=== PATIENT | female | born 1965 ===

== ENCOUNTER 2017-11-07 14:00 | Outpatient (RCR) | payer OTHER, SELFPAY ==
--- NOTE | 2017-10-16 15:00 | PTTR_ITS ---
DATE: 10/16/17 SUBJECTIVE: Do feel I am doing better, but still have to limit what I do with left arm. 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 Has to see if she needs a doctor's note to try this. OBJECTIVE: Manual therapy: ([id number]). Mobilization of left cain-hum jt while in supine position. This included inferior and posterior glides, caudal and lateral distraction, as well as AAROM throughout all planes. Utilized hold relax technique with ER. Performed TFM to anterior cuff, PRT to posterior cuff and TPM to upper traps and rhomboids. Therapeutic procedures ([id number]). * x See flow sheet: Focus was on AAROM, scap stabilization and light rotator cuff strengthening. * x Provided skilled instruction in proper exercise performance * x Provided skilled manual cues to facilitate proper muscle recruitment and/ or movement pattern * x Ultrasound - (x 8 mins) - [id number]: Utilized phonophoresis at 3 mHz at 1.0 w/cm2 50% duty cycle x 8 minutes to anterior cuff region at start of session. Ended session with cryotherapy x 10 minutes to left shoulder while in the seated position. Direct treatment time: 40 minutes Total treatment time: 50 minutes
--- NOTE | 2017-10-18 14:15 | PTTR_ITS ---
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 Indicates she did take ibuprofen following her last session, was warned by her physician that she will most likely be sore following her PT sessions and utilize anti-inflammatories as he instructed. Ultrasound [id number]: Did receive phonophoresis at 3mhz, 50% duty cycle at 1.0 w/ cm2 to the L anterior cuff region x8 mins. Manual therapy: ([id number]). Mobilization of the L GH joint while in supine position. This did include inferior/posterior glides, caudal distraction and AAROM throughout all planes. Utilize hold/relax with IR/ER stretching. Performed transverse friction to the anterior cuff briefly with good desensitization achieved. The patient did transition into the prone position for positional release to the posterior cuff as well as brief trigger point work throughout the upper traps and periscapular region. Did utilize Watson shoulder procedure for adhesive capsulitis with patient in clinic today at no charge. Therapeutic procedures ([id number]). * x See flow sheet: focus was on scap stabilization, cuff strengthening as well as AAROM on ranger martin, finger ladder, in flexion and self stretching into flexion utilizing hand sliding up door casing. She did receive cryotherapy for 10 mins to L shoulder in seated position at no charge. Direct treatment time: 45 mins Total treatment time: 55 mins SG/dl
--- NOTE | 2017-10-23 14:00 | PTTR_ITS ---
DATE: 10/23/17 SUBJECTIVE: Was able to drive her car for 1 and 1/2 hours without increased irritation over the past few days. Rates her pain as a 2 out of 10 at its worse in the last couple of weeks. Overall feels she is doing a lot better and is hoping to get back to full duties at work soon. Sees Dr. Johnson in a couple weeks. Feels like she is moving her left arm easier and further now. OBJECTIVE: * x Ultrasound - (x 8 mins) - [id number]: Phonophoresis with dex gel to anterior rotator cuff x 8 minutes at 3 mHz at 1.0 w/cm2 50% duty cycle at start of session. Manual therapy: ([id number]). Mobilization of left cain-hum jt while in supine position consisting of inferior and posterior glides, caudal and lateral distraction, AA/ PROM throughout all planes. Utilized hold relax technique with IR/ ER. brief TFM to anterior cuff, prone position PRT to posterior cuff and TPM to upper traps and periscap regions. AAROM post mobilization was 160 degrees flexion, 165 degrees scaption, 85 degrees ER and 60 degrees IR. Therapeutic procedures ([id number]). * x See flow sheet: Focus on scap stabilization and AAROM with ball on the wall, pulleys and finger ladder with lift off. * x Provided skilled instruction in proper exercise performance * x Provided skilled manual cues to facilitate proper muscle recruitment and/ or movement pattern HEP review: Indicated she is doing her pulleys, cane stretches and wall slide stretches regularly. Ended session with cryotherapy x 10 minutes to left shoulder at no charge. Direct treatment time: 50 minutes Total treatment time: 60 minutes
--- NOTE | 2017-10-25 15:46 | PTTR_ITS ---
DATE: 10/25/17 SUBJECTIVE: Sherri states that most of her sensitivity, at this point, is posterior. She is mildly sensitive to palpation of the anterior cuff, now, but feels this is much improved. Overall, feels that her ROM has greatly increased. OBJECTIVE: Manual therapy: ([id number]). Mobs of the left glenohumeral joint while in supine. This did include inferior and posterior glides, caudal and lateral distraction as well as AA/AROM throughout all planes. Rhythmic stabilization at various areas of flexion was performed against moderate resistance while in the supine position. Did receive TFM to the anterior cuff briefly, as well as positional release to the posterior cuff. TP work was performed to the upper traps and rhomboids while in prone. Therapeutic procedures ([id number]). * x See flow sheet: focus was on AAROM activities, scapular stabilization and light cuff strengthening. Verbal and tactile cues were provided throughout today's session for proper positioning and isolation of specific muscles. x Ultrasound ([id number] x1). Did receive ultrasound to the posterior cuff today due to this being her most sensitive region upon palpation. This was done @3 megahertz 50% duty cycle @1.0 watt per cm sq x8 minutes. Ended with cryotherapy to the left shoulder while seated at no charge. Direct treatment time: 50 minutes Total treatment time: 60 minutes LOBO/anamaria
--- NOTE | 2017-10-29 15:00 | PTTR_ITS ---
DATE: 10/29/17 SUBJECTIVE: Able to drive 2+ hours without increased irritation. Pain level is a 2 out of 10 at the worst over the last week. Generally a little more sore for remaining day after PT, but tolerable. Doing well with current 4 hours work schedule. OBJECTIVE: Manual therapy: ([id number]). Mobilization of left cain-humeral jt while in supine consisting of inferior / posterior glides, caudal and lateral distraction, f/b AA/PROM throughout all planes. Continues to be limited to approximately 160 degrees flexion / abduction with end range sensitivity. Performed 10 reps of active assistive PNF D1D2 exercises within a pain free range. Rhythmic stabilization at 90 degrees against mod resistance while in supine. Therapeutic procedures ([id number]). * x See flow sheet: Focus on AAROM of left cain-hum jt, scap stab and rotator cuff strengthening. Performed 15 minutes of wellness with assistive personnel at no charge. * x Provided skilled instruction in proper exercise performance * x Provided skilled manual cues to facilitate proper muscle recruitment and/ or movement pattern * x Ultrasound - (x 8 mins) - [id number]: Phonophoresis with dex gel at 3 mHz at 1.0 w/cm2 50% duty cycle x 8 minutes to posterior cuff region, which is where patient complains of being most sensitive to palpation. Ended session with cryotherapy x 10 minutes at no charge. Direct treatment time: 45 minutes Total treatment time: 70 minutes
--- NOTE | 2017-11-01 13:30 | PTTR_ITS ---
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 Johnson on 11/12/17. 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 Johnson. Manual therapy: ([id number]). L GH joint, lateral distraction, caudal glides, posterior/inferior mobilization followed by AAROM into flexion, scapular plane abduction in supine and prone. Therapeutic procedures ([id number]). For prone Hughston's requiring tactile and verbal cues for proper scapular positioning and avoid compensatory trunk extension. Also performed PRT's to the posterior cuff. She then continued via wellness for addition of 25 mins. Actively patient's ROM in flexion 140 degrees, IR L5, AA to T10. ER C7, AA in supine with arm abducted in front plane achieving 75-80 degrees. Direct treatment time: 30 mins Total treatment time: 55 mins P: Continue with current POC. See how she held up with progression of her strengthening in clinic next visit. MM/dl
--- NOTE | 2017-11-05 15:15 | PTTR_ITS ---
DATE: 11/05/17 SUBJECTIVE: Sherri indicates she has been doing well at work thus far. Does not note any increased irritation with her increased activity level. Is looking forward to her appointment with Dr. Johnson in approximately one week. OBJECTIVE: Manual therapy: ([id number]). Mobs of the left glenohumeral jt while in supine. Mobs included inferior and posterior glides, caudal distractions and AAROM throughout all planes as well as TFM briefly to the anterior cuff, positional release to the posterior cuff while in prone as well as brief TP work throughout the upper trapezius, levator scap and rhomboids. Therapeutic procedures ([id number]). * x See flow sheet: focus was on AAROM with Emerson Kristyn, finger ladder and ball on the wall as well as scap stabs and cuff strengthening. * Verbal and tactile cues were provided throughout today's session for proper positioning and isolation of specific muscles. Also, upgraded patient's HEP. See copy of upgraded program located in patient's file. She was provided orange and green t-band to utilize with these exercises. * Ended with cryotherapy x10 min. to the left shoulder at no charge while seated. Direct treatment time: 50 min. Total treatment time: 60 min. SG/gc
--- NOTE | 2017-11-07 14:27 | PTTR_ITS ---
DATE: 11/07/17 SUBJECTIVE: Sherri states she would like to try the tape again. Is seeing Dr. Johnson early next week. OBJECTIVE: Manual therapy: ([id number]). Left glenohumeral jt mobs, lateral distractions, caudal glides, posterior and inferior mobs at Grades 3 and 4 followed by hold relax mobs into ext rotation achieving 80 . Then worked some Timeeter's stretch hold relax mobs. Therapeutic procedures ([id number]). * x See flow sheet: progressed her program with int rotation eccentric strengthening. Post mobs and int rotation strengthening she achieves T10. This compares to L1 pre mobs. * She completed the remainder of her strengthening via Wellness at no charge. Direct treatment time: 2:00 til 2:45 P.M. Assessment: Still limited with her end range motion, but is holding up well with pain tolerance. Did issue her some extra KT tape for self taping purposes. Plan: Continue as indicated above likely cutting back to 1x per week once she returns to work fulltime. At that point, will transition to ATC, Pramod Velasquez , for continued progression of strengthening. MM/gc
== END 2017-11-15 23:59 | disposition home or self-care (01) ==
LOC: PT 14:00
PROVIDERS: Referring Provider Orthopaedic Surgery Sports Medicine; Visit Provider Orthopaedic Surgery Sports Medicine
DX: M75.02 Adhesive capsulitis of left shoulder (principal)
CPT/HCPCS: 97035; 97110; 97140